=== PATIENT | female | born 1950 | race Caucasian/White ===

== ENCOUNTER 2021-03-05 02:14 | Inpatient (IN) | payer MEDICARE, OTHER ==
[~2021-03-05] VITALS: Ht 165.1 cm; Wt 81.0 kg
[2021-03-05] MEDS ORDERED: NS IV 1000 ML 1,000 ML IV SCH ×2 (02:45→03:15)
[2021-03-05] MEDS ORDERED: ONDANSETRON 4 MG/2 ML (SDV) Z0FRAN IVP ONE (02:45)
[2021-03-05 02:53] LABS: BASOPHILS % (AUTO) 0 % (0-10); BILIRUBIN,URINE NEGATIVE (NEGATIVE); CLARITY,URINE CLEAR; COLOR,URINE YELLOW; EOSINOPHILS # (AUTO) 0.2 10^3/uL (0.0-0.3); EOSINOPHILS % (AUTO) 2 % (0-10); GLUCOSE, URINE (UA) NEGATIVE (NEGATIVE); HEMATOCRIT 35 % (35-52); HEMOGLOBIN 11.3 g/dL (11.5-16.0); KETONES,URINE TRACE (NEGATIVE); LEUKOCYTE ESTERASE ,URINE NEGATIVE (NEGATIVE); LYMPHOCYTES # (AUTO) 2.8 10^3/uL (1.0-4.0); LYMPHOCYTES % (AUTO) 30 % (12-44); MEAN CORPUSCULAR HEMOGLOBIN 28 pg (25-34); MEAN CORPUSCULAR HGB CONC 33 g/dL (32-36); MEAN CORPUSCULAR VOLUME 85 fL (80-99); MEAN PLATELET VOLUME 9.6 fL (9.0-12.2); MONOCYTES # (AUTO) 0.7 10^3/uL (0.0-1.0); MONOCYTES % (AUTO) 7 % (0-12); NEUTROPHILS # (AUTO) 5.6 10^3/uL (1.8-7.8); NEUTROPHILS % (AUTO) 60 % (42-75); NITRITE,URINE NEGATIVE (NEGATIVE); PLATELET COUNT 291 10^3/uL (130-400); PROTEIN,URINE NEGATIVE (NEGATIVE); WHITE BLOOD COUNT 9.4 10^3/uL (4.3-11.0)
--- NOTE | 2021-03-05 02:55 | ED General ---
General Stated Complaint: N,V,DIZZY Source of Information: Patient (SOMEWHAT DIFFICULT HISTORIAN) History of Present Illness Date Seen by Provider: Mar 05, 2021 Time Seen by Provider: 02:15 Initial Comments PT ARRIVES VIA EMS FROM HOME--LIVES ALONE, GRANDSON IS HERE IN ER WITH HER STATES SHE HAS BEEN SICK SINCE LAST Monday02/25/21 C/O NAUSEA/VOMITING/DIARRHEA AND DIZZINESS HAS VOMITED X 2 TODAY, DIARRHEA X 1 TODAY. HAS NOT EATEN MUCH IN THE LAST WEEK, BUT IS DRINKING LOTS OF WATER NO ABDOMINAL PAIN NO URINARY SYMPTOMS, BUT IS UNSURE IF SHE IS VOIDING A NORMAL AMOUNT--PT IS WEARING DEPENDS/BRIEFS NO FEVER HAD BRIEF HEADACHE YESTERDAY, BUT WENT AWAY WITHOUT TREATMENT NO BODY ACHES NO COUGH/URI SYMPTOMS NO SHORTNESS OF BREATH NO CHEST PAIN STATES SHE DOESN'T HURT ANYWHERE SYMPTOMS NO DIFFERENT TONIGHT HAS NOT SOUGHT CARE UNTIL TONIGHT HAS NOT TAKEN ANYTHING FOR SYMPTOMS PT HAS RECEIVED BOTH COVID-19 VACCINES--LAST ONE IN OCTOBER 2020 PT IS INSULIN DEPENDENT DIABETIC. LAST CHECKED HER BLOOD SUGAR YESTERDAY MORNING AROUND 1030 AM PCP MITCH LUIS Allergies and Home Medications Allergies Coded Allergies: aspirin (Verified Allergy, Mild, HIVES, 03/05/21) Patient Home Medication List Home Medication List Reviewed: Yes Review of Systems Review of Systems Constitutional: see HPI; No chills, No diaphoresis; dizziness; No fever EENTM: no symptoms reported Respiratory: no symptoms reported; No cough, No short of breath Cardiovascular: no symptoms reported; No chest pain Gastrointestinal: see HPI; No abdominal pain; diarrhea, nausea, vomiting Genitourinary: see HPI Musculoskeletal: no symptoms reported Skin: no symptoms reported Psychiatric/Neurological: Headache Hematologic/Lymphatic: No Symptoms Reported Immunological/Allergic: no symptoms reported Past Jpqlynu-Nqcpcu-Mbflcg Hx Patient Social History Tobacco Use?: Yes Smoking Status: Former Smoker (QUIT 2011) Substance use?: No Alcohol Use?: No Past Medical History Surgeries: Yes Tubal Ligation Respiratory: No Cardiac: Yes High Cholesterol, Hypertension Neurological: No Genitourinary: No Gastrointestinal: No Musculoskeletal: No Endocrine: Yes Diabetes, Insulin dep, Hypothyroidsim HEENT: Yes Cataract Loss of Vision: Bilateral Hearing Impairment: Hard of Hearing Psychosocial: Yes Anxiety, Depression Integumentary: No Blood Disorders: No Physical Exam Vital Signs Vital Signs - First Documented 03/05/21 02:14 Temp 36.3 Pulse 72 Resp 16 B/P (MAP) 152/55 (87) Pulse Ox 98 O2 Delivery Room Air Capillary Refill : Height, Weight, BMI Height: '" Weight: lbs. oz. kg; BMI Method: General Appearance: No Apparent Distress, WD/WN, Other (UNKEMPT) HEENT: PERRL/EOMI, Other (CORNEAS OPACIFIED BILATERALLY. 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 II-XII Norm as Tested Skin: Normal Color, Warm/Dry Progress/Results/Core Measures Suspected Sepsis SIRS Temperature: Pulse: Respiratory Rate: Laboratory Tests 03/05/21 02:34: White Blood Count 9.4 Blood Pressure / Mean: Laboratory Tests 03/05/21 02:34: Creatinine 0.91, Platelet Count 291, Total Bilirubin 0.3 Results/Orders Lab Results Laboratory Tests Test 03/05/21 02:21 03/05/21 02:34 03/05/21 02:50 Range/Units SARS-CoV-2 RNA (RT-PCR) Not Detected Not Detecte White Blood Count 9.4 4.3-11.0 10^3/uL Red Blood Count 4.04 3.80-5.11 10^6/uL Hemoglobin 11.3 L 11.5-16.0 g/dL Hematocrit 35 35-52 % Mean Corpuscular Volume 85 80-99 fL Mean Corpuscular Hemoglobin 28 25-34 pg Mean Corpuscular Hemoglobin Concent 33 32-36 g/dL Red Cell Distribution Width 12.6 10.0-14.5 % Platelet Count 291 130-400 10^3/uL Mean Platelet Volume 9.6 9.0-12.2 fL Immature Granulocyte % (Auto) 1 % Neutrophils (%) (Auto) 60 42-75 % Lymphocytes (%) (Auto) 30 12-44 % Monocytes (%) (Auto) 7 0-12 % Eosinophils (%) (Auto) 2 0-10 % Basophils (%) (Auto) 0 0-10 % Neutrophils # (Auto) 5.6 1.8-7.8 10^3/uL Lymphocytes # (Auto) 2.8 1.0-4.0 10^3/uL Monocytes # (Auto) 0.7 0.0-1.0 10^3/uL Eosinophils # (Auto) 0.2 0.0-0.3 10^3/uL Basophils # (Auto) 0.0 0.0-0.1 10^3/uL Immature Granulocyte # (Auto) 0.1 0.0-0.1 10^3/uL Urine Color YELLOW Urine Clarity CLEAR Urine pH 5.0 5-9 Urine Specific [place] 1.025 H 1.016-1.022 Urine Protein NEGATIVE NEGATIVE Urine Glucose (UA) NEGATIVE NEGATIVE Urine Ketones TRACE H NEGATIVE Urine Nitrite NEGATIVE NEGATIVE Urine Bilirubin NEGATIVE NEGATIVE Urine Urobilinogen 0.2 < = 1.0 MG/DL Urine Leukocyte Esterase NEGATIVE NEGATIVE Urine RBC (Auto) TRACE-I NEGATIVE Urine RBC RARE /HPF Urine WBC NONE /HPF Urine Squamous Epithelial Cells 2-5 /HPF Urine Crystals NONE /LPF Urine Bacteria NEGATIVE /HPF Urine Casts PRESENT /LPF Urine Hyaline Casts 2-5 H /LPF Urine Mucus LARGE H /LPF Urine Culture Indicated NO Sodium Level 126 L 135-145 MMOL/L Potassium Level 4.1 3.6-5.0 MMOL/L Chloride Level 92 L 98-107 MMOL/L Carbon Dioxide Level 23 21-32 MMOL/L Anion Gap 11 5-14 MMOL/L Blood Urea Nitrogen 19 H 7-18 MG/DL Creatinine 0.91 0.60-1.30 MG/DL Estimat Glomerular Filtration Rate 61 BUN/Creatinine Ratio 21 Glucose Level 87 70-105 MG/DL Calcium Level 9.3 8.5-10.1 MG/DL Corrected Calcium 9.2 8.5-10.1 MG/DL Magnesium Level 1.4 L 1.6-2.4 MG/DL Total Bilirubin 0.3 0.1-1.0 MG/DL Aspartate Amino Transf (AST/SGOT) 19 5-34 U/L Alanine Aminotransferase (ALT/SGPT) 25 0-55 U/L Alkaline Phosphatase 97 40-136 U/L Troponin I < 0.028 <0.028 NG/ML Total Protein 6.9 6.4-8.2 GM/DL Albumin 4.1 3.2-4.5 GM/DL Amylase Level 30 25-125 U/L Lipase 17 8-78 U/L Glucometer 90 70-110 MG/DL My Orders Orders - NOHEMI GARCIA DO Ed Iv/Invasive Line Start (03/05/21 02:16) Ekg Tracing (03/05/21 02:16) Monitor-Rhythm Ecg Trace Only (03/05/21 02:16) Ct Head Wo-R/O Stroke (03/05/21 02:16) Chest 1 View, Ap/Pa Only (03/05/21 02:16) Amylase (03/05/21 02:16) Cbc With Automated Diff (03/05/21 02:16) Comprehensive Metabolic Panel (03/05/21 02:16) Lipase (03/05/21 02:16) Magnesium (03/05/21 02:16) Ua Culture If Indicated (03/05/21 02:16) Troponin I (03/05/21 02:16) Covid 19 Inhouse Test (03/05/21 02:16) Isolation Central Supply Req (03/05/21 02:16) Straight Cath For Spec.-Adult (03/05/21 02:40) Ondansetron Injection (Zofran Injectio (03/05/21 02:45) Ed Iv/Invasive Line Start (03/05/21 02:40) Ed Iv/Invasive Line Start (03/05/21 02:40) Ns Iv 1000 Ml (Sodium Chloride 0.9%) (03/05/21 02:45) Accucheck Stat ONCE (03/05/21 02:40) Magnesium 1 Gm/100 Ml Ivpb (Magnesium Nails (03/05/21 03:15) Ed Iv/Invasive Line Start (03/05/21 03:13) Ns Iv 1000 Ml (Sodium Chloride 0.9%) (03/05/21 03:15) Medications Given in ED Current Medications Medications Dose Ordered Sig/Chase Route Start Time Stop Time Status Last Admin Dose Admin Magnesium Sulfate/ Dextrose 100 ml @ 100 mls/hr ONCE ONCE IV 03/05/21 03:15 03/05/21 04:14 DC 03/05/21 04:03 100 MLS/HR Ondansetron HCl 4 mg ONCE ONCE IVP 03/05/21 02:45 03/05/21 02:47 DC 03/05/21 02:50 4 MG Vital Signs/I&O 03/05/21 02:14 Temp 36.3 Pulse 72 Resp 16 B/P (MAP) 152/55 (87) Pulse Ox 98 O2 Delivery Room Air Capillary Refill : Progress Note : Progress Note PLACED IN ISOLATION ROOM PPE WORN AT ALL TIMES COVID-19 TESTING PERFORMED, REMOVED FROM PUI STATUS ON NEGATIVE COVID-19 TEST, AND PT IS FULLY VACCINATED. ACCUCHECK 90 ON ARRIVAL GIVEN IV FLUIDS AND ZOFRAN AND MAGNESIUM NO VOMITING OR DIARRHEA DURING ER STAY VITALS STABLE NO DETERIORATION IN PT'S CONDITION DURING ER STAY ECG Initial ECG Impression Date: Mar 05, 2021 Initial ECG Impression Time: 02:27 Initial ECG Rate: 70 Initial ECG Rhythm: Normal Sinus Diagnostic Imaging Comments CXR--NO ACUTE PROCESS, PENDING RADIOLOGIST REVIEW CT HEAD--NO ACUTE PROCESS, PER [facility] RADIOLOGIST VIA PHONE AT [id number] AND LATER VIA FAX Reviewed: Reviewed by Me Departure Communication (Admissions) [id number]--SPOKE WITH DR. TRIPATHI, HOSPITALIST, ACCEPTS PT FOR ADMIT Impression Primary Impression: Nausea, vomiting and diarrhea Additional Impressions: Dizziness Hyponatremia Hypomagnesemia IDDM (insulin dependent diabetes mellitus) HTN (hypertension) Blindness Disposition: 09 ADMITTED INPATIENT Condition: Stable Admissions Decision to Admit Reason: Admit from ER (General) Decision to Admit/Date: Mar 05, 2021 Time/Decision to Admit Time: 03:55 NOHEMI GARCIA DO Mar 05, 2021 02:55
[2021-03-05 03:01] LABS: ALBUMIN 4.1 GM/DL (3.2-4.5); CHLORIDE 92 MMOL/L (98-107); POTASSIUM 4.1 MMOL/L (3.6-5.0); SODIUM 126 MMOL/L (135-145)
[2021-03-05 03:02] LABS: AMYLASE 30 U/L (25-125); CALCIUM 9.3 MG/DL (8.5-10.1)
[2021-03-05 03:03] LABS: GLUCOSE 87 MG/DL (70-105); TOTAL PROTEIN 6.9 GM/DL (6.4-8.2)
[2021-03-05 03:04] LABS: CARBON DIOXIDE 23 MMOL/L (21-32)
[2021-03-05 03:05] LABS: BILIRUBIN,TOTAL 0.3 MG/DL (0.1-1.0)
[2021-03-05 03:07] LABS: ALKALINE PHOSPHATASE 97 U/L (40-136); CREATININE SERUM 0.91 MG/DL (0.60-1.30); GFR ESTIMATED 61
[2021-03-05 03:08] LABS: BUN/CREATININE RATIO 21
[2021-03-05 03:10] LABS: ALANINE AMINOTRANSFERASE 25 U/L (0-55); MAGNESIUM 1.4 MG/DL (1.6-2.4)
[2021-03-05 03:11] LABS: LIPASE 17 U/L (8-78)
[2021-03-05 03:14] LABS: BACTERIA,URINE NEGATIVE /HPF; RBC,URINE RARE /HPF
[2021-03-05] MEDS ORDERED: MAGNESIUM 1 GM/100 ML IVPB 100 ML IV ONE (03:15)
[2021-03-05 05:10] VITALS: BP 151/66
[2021-03-05] MEDS: inSUlin ASPART (NovoLOG) 1 UNIT/0.01 ML (CHARGE PER UNIT) SC SCH ×4 (05:28→20:38)
[2021-03-05] MEDS ORDERED: ONDANSETRON 4 MG/2 ML (SDV) Z0FRAN IV PRN (05:30)
[2021-03-05] MEDS ORDERED: ACETAMINOPHEN 500 MG TAB (TYLENOL) PO PRN (05:30)
[2021-03-05] MEDS: NS IV 1000 ML 1,000 ML IV SCH ×3 (05:56→17:48)
--- NOTE | 2021-03-05 06:55 | Diagnostic Imaging Report ---
Indication: Dizziness, nausea, vomiting, chest pain. Comparison: None Findings: Single view of the chest demonstrates clear lungs bilaterally. The heart is normal. There is no pneumothorax. Osseous structures normal. Impression: Negative chest. Dictated by: Dictated on workstation # [id number]
--- NOTE | 2021-03-05 07:04 | Diagnostic Imaging Report ---
PROCEDURE: CT head wo r/o stroke. TECHNIQUE: Multiple contiguous axial images were obtained through the brain without the use of intravenous contrast. Auto Exposure Controls were utilized during the CT exam to meet ALARA standards for radiation dose reduction. INDICATION: Dizziness, headache. COMPARISON: None FINDINGS: Age-related cerebral volume loss and chronic microvascular changes are present. There is no focus of acute ischemia or hemorrhage. No dense vessel sign seen. There is no mass. Bony calvarium is normal. Paranasal sinuses and right mastoid is clear. There is nonspecific effusion of the left mastoid air cell. IMPRESSION: No acute intracranial abnormalities. Agree with preliminary report. Dictated by: Dictated on workstation # [id number]
[2021-03-05 08:00] VITALS: BP 117/58
[2021-03-05] MEDS: MAGNESIUM 1 GM/100 ML IVPB 100 ML IV SCH ×3 (09:29→12:07)
[2021-03-05 12:00] VITALS: BP 158/71
--- NOTE | 2021-03-05 12:25 | History & Physical-Hospitalist ---
History of Present Illness HPI/Chief Complaint Cary Rawls is a 70 year old female with PMH blindness, T2DM, HTN, HLD, hypothyroidism, GERD, who presented with dizziness. She reports that she had an episode of nausea and vomiting a week ago and quickly resolved. She then developed more nausea and vomiting over the past couple days. She has also had loose stools. She reports feeling dizzy and being unable to move from her chair to her wheelchair, so she called EMS. She denies abdominal pain. She denies fevers and chills. She denies chest pain. She denies shortness of breath and cough. She says her diabetes is well controlled. Source: patient Exam Limitations: no limitations Date Seen 03/05/21 Time Seen by a Provider: 10:00 Attending Physician Shahnaz Tao DO PCP No,Local Physician Referring Physician Date of Admission Mar 05, 2021 at 03:55 Home Medications & Allergies Home Medications Reviewed patient Home Medication Reconciliation performed by pharmacy medication reconciliations microwave technician and/or nursing. Patients Allergies have been reviewed. Allergies Allergies Coded Allergies aspirin (Verified Allergy, Mild, HIVES, 03/05/21) Past Iovquim-Jcukxx-Iwjvjk Hx Patient Social History Tobacco Use?: No Smoking Status: Former Smoker (QUIT 2011) Substance use?: No Alcohol Use?: No Pt feels they are or have been: No Immunizations Up To Date First/Initial COVID19 Vaccinat: 11/19/2020 Second COVID19 Vaccination Jama: 11/19/2020 Current Status status: No Advance Directives: Yes Advance Directive Location: Home Communicates: Verbally Primary Language: Spanish Preferred Spoken Language: Spanish Is interpretation needed?: No Sensory deficits: Vision impairment Implanted or Applied Medical D: None Past Medical History Surgeries: Tubal Ligation High Cholesterol, Hypertension Diabetes, Insulin dep, Hypothyroidsim Cataract Loss of Vision: Bilateral Hearing Impairment: Hard of Hearing Anxiety, Depression Blood Disorders: No Family Medical History No Pertinent Family Hx Review of Systems Constitutional: dizziness EENTM: no symptoms reported Respiratory: no symptoms reported Cardiovascular: no symptoms reported Gastrointestinal: diarrhea, nausea, vomiting Genitourinary: no symptoms reported Musculoskeletal: no symptoms reported Skin: no symptoms reported Psychiatric/Neurological: No Symptoms Reported Physical Exam Physical Exam Vital Signs Vital Signs - First Documented 03/05/21 02:14 Temp 36.3 Pulse 72 Resp 16 B/P (MAP) 152/55 (87) Pulse Ox 98 O2 Delivery Room Air Capillary Refill : Less Than 3 Seconds Height, Weight, BMI Height: '" Weight: lbs. oz. kg; 29.71 BMI Method: General Appearance: No Apparent Distress, WD/WN HEENT: PERRL/EOMI, Pharynx Normal Neck: Normal Inspection, Supple Respiratory: Lungs Clear, Normal Breath Sounds, No Respiratory Distress Cardiovascular: Regular Rate, Rhythm, No Edema, No Murmur Gastrointestinal: Normal Bowel Sounds, Non Tender, Soft Extremity: Normal Inspection, Non Tender, No Pedal Edema Neurologic/Psychiatric: Alert, Oriented x3, No Motor/Sensory Deficits, Normal Mood/Affect Skin: Normal Color, Warm/Dry Results Results/Procedures Labs Laboratory Tests 03/05/21 02:34 Patient resulted labs reviewed. Imaging: Reviewed Imaging Report Assessment/Plan Admission Diagnosis Acute gastroenteritis Admission Status: Inpatient Order (span 2 midnights) Reason for Inpatient Admission: IV fluids Assessment and Plan Acute gastroenteritis Hyponatremia Dehydration IV fluids Zofran Clear liquid diet, advance as tolerated HTN Hypothyroidism GERD Continue home meds T2DM Hold Metformin and Glipizide Sliding scale insulin DVT prophylaxis: Lovenox Diagnosis/Problems Diagnosis/Problems (1) Acute gastroenteritis Status: Acute (2) Dehydration Status: Acute (3) Hyponatremia Status: Acute (4) Hypomagnesemia Status: Acute (5) HTN (hypertension) Status: Acute (6) IDDM (insulin dependent diabetes mellitus) Status: Acute ZAIDA GARCIA MD Mar 05, 2021 12:25
[2021-03-05] MEDS ORDERED: lisINopril 40 MG (PRINIVIL) TABLET PO ONE (12:30)
[2021-03-05] MEDS ORDERED: ENOXAPARIN 40 MG/0.4 ML (LOVENOX) SYR SC SCH (13:00)
[2021-03-05] MEDS ORDERED: CHOL100045 PO (13:07)
[2021-03-05] MEDS ORDERED: LEVO75TA6 PO (13:07)
[2021-03-05] MEDS ORDERED: PRAV40TA2 PO (13:07)
[2021-03-05] MEDS ORDERED: BUPR-168 PO (13:07)
[2021-03-05] MEDS ORDERED: ACET-2267 PO (13:07)
[2021-03-05] MEDS ORDERED: MELA5TAB14 PO (13:07)
[2021-03-05] MEDS ORDERED: INSU100I34 SC (13:07)
[2021-03-05] MEDS ORDERED: SERT-412 PO (13:07)
[2021-03-05] MEDS ORDERED: OMEP20CA18 PO (13:07)
[2021-03-05] MEDS ORDERED: ASCO500T17 PO (13:07)
[2021-03-05] MEDS ORDERED: METF-397 PO (13:07)
[2021-03-05] MEDS ORDERED: LORA10TA7 PO (13:07)
[2021-03-05] MEDS ORDERED: GLIP5TAB13 PO (13:07)
[2021-03-05] MEDS ORDERED: DIPH25CA79 PO (13:07)
[2021-03-05] MEDS ORDERED: LISI1TAB46 PO (13:07)
[2021-03-05] MEDS ORDERED: CYAN-41 PO (13:07)
[2021-03-05 15:27] VITALS: BP 108/52
[2021-03-05 19:32] VITALS: BP 138/60
[2021-03-05] MEDS: buPROPion 75 MG (WELLBUTRIN) TAB PO SCH (20:35)
[2021-03-05 23:30] VITALS: BP 131/108
[2021-03-06 03:36] VITALS: BP 110/63
[2021-03-06 05:55] LABS: BASOPHILS % (AUTO) 1 % (0-10); EOSINOPHILS # (AUTO) 0.1 10^3/uL (0.0-0.3); EOSINOPHILS % (AUTO) 2 % (0-10); HEMATOCRIT 31 % (35-52); LYMPHOCYTES # (AUTO) 2.7 10^3/uL (1.0-4.0); LYMPHOCYTES % (AUTO) 36 % (12-44); MEAN CORPUSCULAR HEMOGLOBIN 28 pg (25-34); MEAN CORPUSCULAR HGB CONC 33 g/dL (32-36); MEAN CORPUSCULAR VOLUME 86 fL (80-99); MEAN PLATELET VOLUME 9.9 fL (9.0-12.2); MONOCYTES # (AUTO) 0.6 10^3/uL (0.0-1.0); MONOCYTES % (AUTO) 8 % (0-12); NEUTROPHILS # (AUTO) 3.9 10^3/uL (1.8-7.8); NEUTROPHILS % (AUTO) 53 % (42-75); PLATELET COUNT 273 10^3/uL (130-400); WHITE BLOOD COUNT 7.3 10^3/uL (4.3-11.0)
[2021-03-06 06:14] LABS: POTASSIUM 3.8 MMOL/L (3.6-5.0)
[2021-03-06 06:15] LABS: CALCIUM 8.8 MG/DL (8.5-10.1)
[2021-03-06 06:19] LABS: CREATININE SERUM 0.72 MG/DL (0.60-1.30)
[2021-03-06 06:21] LABS: MAGNESIUM 1.8 MG/DL (1.6-2.4)
[2021-03-06] MEDS ORDERED: LEVOTHYROXINE 75 MCG (LEVOTHROID) TABLET PO SCH (06:30)
[2021-03-06] MEDS: inSUlin ASPART (NovoLOG) 1 UNIT/0.01 ML (CHARGE PER UNIT) SC SCH ×2 (06:38→11:00)
[2021-03-06 07:46] VITALS: BP 126/74
[2021-03-06] MEDS: NS IV 1000 ML 1,000 ML IV SCH (08:51)
[2021-03-06] MEDS: buPROPion 75 MG (WELLBUTRIN) TAB PO SCH (08:52)
[2021-03-06] MEDS ORDERED: PANTOPRAZOLE 20 MG TABLET (PROTONIX) PO SCH (09:00)
[2021-03-06] MEDS ORDERED: lisINopril 40 MG (PRINIVIL) TABLET PO SCH (09:00)
[2021-03-06 11:17] VITALS: BP 160/83
[2021-03-06] MEDS ORDERED: SCOP1PAT11 TD (11:47)
--- NOTE | 2021-03-06 12:25 | Discharge Summary ---
Discharge Summary Hospital Course Was the Problem List Reviewed?: Yes Problems/Dx: (1) Acute gastroenteritis Status: Acute (2) Dehydration Status: Acute (3) Hyponatremia Status: Acute (4) Hypomagnesemia Status: Acute (5) HTN (hypertension) Status: Acute (6) IDDM (insulin dependent diabetes mellitus) Status: Acute Hospital Course Date of Admission: Mar 05, 2021 at 03:55 Admission Diagnosis : Acute gastroenteritis Family Physician/Provider: No,Local Physician Date of Discharge: 03/06/21 Discharge Diagnosis: Acute gastroenteritis Hospital Course: Cary Rawls is a 70-year-old female who was admitted with acute gastroenteritis. She was having issues with nausea, vomiting, and diarrhea. She was treated with supportive care and improved. She was given IV fluids and her dehydration resolved. She did not have any further issues with nausea and vomiting. She was discharged home in stable condition. She wants to establish care at the [facility]. Labs and Pending Lab Test: Laboratory Tests 03/05/21 12:09: Glucometer 105 03/05/21 15:38: Glucometer 126H 03/05/21 20:38: Glucometer 152H 03/06/21 04:58: White Blood Count 7.3, Red Blood Count 3.57L, Hemoglobin 10.0L, Hematocrit 31L, Mean Corpuscular Volume 86, Mean Corpuscular Hemoglobin 28, Mean Corpuscular Hemoglobin Concent 33, Red Cell Distribution Width 13.0, Platelet Count 273, Mean Platelet Volume 9.9, Immature Granulocyte % (Auto) 1, Neutrophils (%) (Auto) 53, Lymphocytes (%) (Auto) 36, Monocytes (%) (Auto) 8, Eosinophils (%) (Auto) 2, Basophils (%) (Auto) 1, Neutrophils # (Auto) 3.9, Lymphocytes # (Auto) 2.7, Monocytes # (Auto) 0.6, Eosinophils # (Auto) 0.1, Basophils # (Auto) 0.0, Immature Granulocyte # (Auto) 0.1, Sodium Level 135, Potassium Level 3.8, Chloride Level 102, Carbon Dioxide Level 24, Anion Gap 9, Blood Urea Nitrogen 12, Creatinine 0.72, Estimat Glomerular Filtration Rate 80, BUN/Creatinine Ratio 17, Glucose Level 91, Calcium Level 8.8, Magnesium Level 1.8 03/06/21 05:53: Glucometer 89 03/06/21 11:00: Glucometer 181H Home Meds Active Transderm-Scop (Scopolamine) 1 Each Patch.td72 1 Each TD Q72H PRN 7 Days Reported Brianna Persaud U-100 (Insulin Glargine,Hum.rec.anlog) 100 Unit/1 Ml Insuln.pen 24 Units SC DAILY LAST FILLED 08-23-2020 #5 PENS/63 DAY SUPPLY Benadryl (Diphenhydramine HCl) 25 Mg Capsule 25 Mg PO BID PRN Loratadine 10 Mg Tablet 10 Mg PO DAILY Tylenol Extra Strength (Acetaminophen) 500 Mg Tablet 1,000 Mg PO Q8H PRN Melatonin 5 Mg Tablet 5 Mg PO HS Vitamin D3 (Cholecalciferol (Vitamin D3)) 25 Mcg Tablet 25 Mcg PO DAILY Vitamin B-12 (Cyanocobalamin (Vitamin B-12)) 1,000 Mcg Tablet 1,000 Mcg PO DAILY Vitamin C (Ascorbic Acid) 500 Mg Tablet 500 Mg PO DAILY Pravastatin Sodium 40 Mg Tablet 40 Mg PO HS Omeprazole 20 Mg Capsule.dr 20 Mg PO HS Levothyroxine Sodium 75 Mcg Tablet 75 Mcg PO DAILY Glipizide 5 Mg Tablet 5 Mg PO DAILY Lisinopril-Hctz 20-12.5 mg Tab (Lisinopril/Hydrochlorothiazide) 1 Each Tablet 1 Ea PO DAILY Sertraline HCl 25 Mg Tablet 25 Mg PO DAILY Metformin HCl 500 Mg Tablet 1,000 Mg PO BID TAKES 2 (500MG) TABS Bupropion HCl 75 Mg Tablet 75 Mg PO BID Assessment/Pt Instructions Take medications as prescribed. Follow-up with your primary care physician. Return with worsening symptoms. Discharge Planning: <30 minutes discharge planning Discharge Instructions Discharge Diet: ADA Diet Activity as Tolerated: Yes Discharge Physical Examination Vital Signs Vital Signs Date Time Temp Pulse Resp B/P (MAP) Pulse Ox O2 Delivery O2 Flow Rate FiO2 03/06/21 11:17 35.1 86 16 160/83 (108) 97 Room Air General Appearance: No Apparent Distress, WD/WN Respiratory: Lungs Clear, Normal Breath Sounds, No Respiratory Distress Cardiovascular: Regular Rate, Rhythm, No Edema, No Murmur Gastrointestinal: Normal Bowel Sounds, Non Tender, Soft Extremity: Normal Inspection, Non Tender, No Pedal Edema Skin: Normal Color, Warm/Dry Neurologic/Psychiatric: Alert, Oriented x3, No Motor/Sensory Deficits, Normal Mood/Affect Allergies: Coded Allergies: aspirin (Verified Allergy, Mild, HIVES, 03/05/21) Copy Copies To 1: [facility] [place] Discharge Summary Date of Admission Mar 05, 2021 at 03:55 Date of Discharge Discharge Date: Mar 06, 2021 Discharge Time: 12:23 Admission Diagnosis Acute gastroenteritis Discharge Diagnosis Acute gastroenteritis Hyponatremia Dehydration (1) Acute gastroenteritis Status: Acute (2) Dehydration Status: Acute (3) Hyponatremia Status: Acute (4) Hypomagnesemia Status: Acute (5) HTN (hypertension) Status: Acute (6) IDDM (insulin dependent diabetes mellitus) Status: Acute ZAIDA GARCIA MD Mar 06, 2021 12:10
== END 2021-03-06 14:50 | disposition home or self-care (01) | DRG 392 ==
LOC: EDUNIT# 02:14 → ER 02:17 → 4TH 03:55
PROVIDERS: ADMIT Internal Medicine; ATTEND Internal Medicine
PROC: 5A09357 Assistance with Respiratory Ventilation, Less than 24 Consecutive Hours, Continuous Positive Airway Pressure (ICD-10-PCS; principal; 2021-03-05)
DX: K52.9 Noninfective gastroenteritis and colitis, unspecified (principal); E87.1 Hypo-osmolality and hyponatremia; E86.0 Dehydration; E83.42 Hypomagnesemia; I10 Essential (primary) hypertension; E11.9 Type 2 diabetes mellitus without complications; Z20.822 Contact with and (suspected) exposure to COVID-19; E78.5 Hyperlipidemia, unspecified; E03.9 Hypothyroidism, unspecified; K21.9 Gastro-esophageal reflux disease without esophagitis; Z87.891 Personal history of nicotine dependence; E78.00 Pure hypercholesterolemia, unspecified; Z79.4 Long term (current) use of insulin; Z79.899 Other long term (current) drug therapy; F41.9 Anxiety disorder, unspecified; F32.9 Major depressive disorder, single episode, unspecified; H54.7 Unspecified visual loss
CPT/HCPCS: 36415; 51701; 70450; 71045; 80048; 80053; 81000; 82150; 82947; 83690; 83735; 84484; 85025; 87636; 93005; 93041; G0378

== ENCOUNTER 2021-05-17 23:39 | Observation (INO) | payer MEDICARE ==
[~2021-05-17] VITALS: Ht 165 cm; Wt 78.3 kg
[~2021-05-17 23:39] MED LIST: ACET-2267 PO; ASCO500T17 PO; BUPR-168 PO; CHOL10004 PO; CYAN-41 PO; DIPH25CA79 PO; GLIP5TAB13 PO; INSU100I34 SC; LEVO75TA6 PO; LISI1TAB46 PO; LORA10TA7 PO; MELA5TAB14 PO; METF-397 PO; OMEP20CA18 PO; PRAV40TA2 PO; SCOP1PAT10 TD; SERT-412 PO
[2021-05-17] MEDS ORDERED: LACTATED RINGERS 1,000 ML IV ONE (23:45)
[2021-05-18] VITALS (7 sets, daily range): BP systolic 113–202; BP diastolic 52–90
[2021-05-18 00:02] LABS: BASOPHILS % (AUTO) 1 % (0-10); EOSINOPHILS # (AUTO) 0.3 10^3/uL (0.0-0.3); EOSINOPHILS % (AUTO) 3 % (0-10); HEMATOCRIT 36 % (35-52); HEMOGLOBIN 11.8 g/dL (11.5-16.0); LYMPHOCYTES # (AUTO) 3.3 10^3/uL (1.0-4.0); LYMPHOCYTES % (AUTO) 37 % (12-44); MEAN CORPUSCULAR HEMOGLOBIN 29 pg (25-34); MEAN CORPUSCULAR HGB CONC 33 g/dL (32-36); MEAN CORPUSCULAR VOLUME 88 fL (80-99); MEAN PLATELET VOLUME 10.3 fL (9.0-12.2); MONOCYTES # (AUTO) 0.6 10^3/uL (0.0-1.0); MONOCYTES % (AUTO) 7 % (0-12); NEUTROPHILS # (AUTO) 4.6 10^3/uL (1.8-7.8); NEUTROPHILS % (AUTO) 52 % (42-75); PLATELET COUNT 264 10^3/uL (130-400); WHITE BLOOD COUNT 8.9 10^3/uL (4.3-11.0)
[2021-05-18 00:14] LABS: ALBUMIN 4.2 GM/DL (3.2-4.5); CHLORIDE 100 MMOL/L (98-107); POTASSIUM 4.8 MMOL/L (3.6-5.0); SODIUM 136 MMOL/L (135-145)
[2021-05-18 00:15] LABS: AMYLASE 47 U/L (25-125); CALCIUM 9.3 MG/DL (8.5-10.1)
[2021-05-18 00:16] LABS: GLUCOSE 123 MG/DL (70-105); TOTAL PROTEIN 7.4 GM/DL (6.4-8.2)
[2021-05-18 00:17] LABS: CARBON DIOXIDE 21 MMOL/L (21-32)
[2021-05-18 00:18] LABS: BILIRUBIN,TOTAL 0.2 MG/DL (0.1-1.0)
[2021-05-18 00:20] LABS: ALKALINE PHOSPHATASE 100 U/L (40-136); CREATININE SERUM 0.99 MG/DL (0.60-1.30); ERYTHROCYTE SEDIMENTATION RATE 24 MM/HR (0-30); GFR ESTIMATED 56
[2021-05-18 00:21] LABS: BUN/CREATININE RATIO 17; INR 0.9 (0.8-1.4); PROTHROMBIN TIME PATIENT 12.9 SEC (12.2-14.7)
[2021-05-18 00:23] LABS: ALANINE AMINOTRANSFERASE 14 U/L (0-55); MAGNESIUM 1.6 MG/DL (1.6-2.4)
[2021-05-18 00:24] LABS: CREATINE KINASE 76 U/L (29-168); LIPASE 26 U/L (8-78)
[2021-05-18 00:29] LABS: BILIRUBIN,URINE NEGATIVE (NEGATIVE); CLARITY,URINE CLEAR; COLOR,URINE YELLOW; GLUCOSE, URINE (UA) NEGATIVE (NEGATIVE); KETONES,URINE TRACE (NEGATIVE); LEUKOCYTE ESTERASE ,URINE 1+ (NEGATIVE); NITRITE,URINE NEGATIVE (NEGATIVE); PH,URINE 5.5 (5-9); PROTEIN,URINE NEGATIVE (NEGATIVE)
[2021-05-18 00:31] LABS: CREATINE KINASE MB 1.4 NG/ML (<6.6)
[2021-05-18 00:40] LABS: AMPHETAMINE SCREEN, URINE NEGATIVE (NEGATIVE); BARBITURATE SCREEN URINE NEGATIVE (NEGATIVE); BENZODIAZEPINES SCREEN URINE NEGATIVE (NEGATIVE); CANNABINOID SCREEN, URINE NEGATIVE (NEGATIVE); COCAINE SCREEN URINE NEGATIVE (NEGATIVE); METHADONE STAT NEGATIVE (NEGATIVE); METHAMPHETAMINE SCREEN URINE S NEGATIVE (NEGATIVE); OPIATE SCREEN URINE NEGATIVE (NEGATIVE); OXYCODONE STAT NEGATIVE (NEGATIVE); PROPOXYPHENE STAT NEGATIVE (NEGATIVE); TRICYCLIC ANTIDEPRESSANTS SCRE NEGATIVE (NEGATIVE)
[2021-05-18 00:41] LABS: BACTERIA,URINE TRACE /HPF
[2021-05-18] MEDS ORDERED: cefTRIAXone 1 GM PRE-MIX 50 ML IV STA (01:23)
--- NOTE | 2021-05-18 02:24 | ED General ---
General Chief Complaint: General Problems/Pain Stated Complaint: UTI;GENERALIZED WEAKNESS;DEHYDRATION Nursing Triage Note: Pt arrives via EMS from home with c/o generalized weakness et vomiting; pt also reports sliding out of bed today. Pt denies hitting her head or LOC. Source of Information: Patient (LIMITED HISTORIAN), EMS, Old Records, Other (GRANDSON IS LIMITED HISTORIAN ABOUT CURRENT PROBLEM) History of Present Illness Date Seen by Provider: May 17, 2021 Time Seen by Provider: 23:40 Initial Comments PT ARRIVES VIA EMS FROM HOME, GRANDSON ARRIVES LATER BY POV C/O GENERALIZED WEAKNESS PT HAS HAD NAUSEA AND VOMITING--UNKNOWN NUMBER OF TIMES NO DIARRHEA NO ABDOMINAL PAIN PT WAS GETTING UP TO GO TO THE BATHROOM, AND WAS TOO WEAK TO STAND AND SLID DOWN THE SIDE OF THE BED AND WAS IN A SITTING POSITION BY THE BED WHEN EMS ARRIVED AT THE SCENE, AND PT WAS ACTIVELY VOMITING WHEN EMS ARRIVED PT REPORTS THAT SHE TOOK A ZOFRAN AT 2030 TONIGHT--PT DOES NOT COMPLAIN OF NAUSEA AT THIS TIME PT IS NOT SURE WHAT TIME THE ABOVE OCCURRED, BUT HEARD THEM ANNOUNCE THE TIME ON THE RADIO, SHORTLY AFTERWARD AND IT SAID THE TIME WAS 2230. DID NOT HIT HEAD AND DENIES LOSS OF CONSCIOUSNESS STATES SHE FELT LIGHTHEADED WHEN SHE TRIED TO STAND UP NO CHEST PAIN NO SHORTNESS OF BREATH NO HEADACHE NO COUGH NO FEVER NO URINARY SYMPTOMS. IS UNSURE IF SHE IS VOIDING A NORMAL AMOUNT. PT WEARING BRIEFS/DEPENDS. NO PAIN ANYWHERE, AND DENIES INJURING HERSELF FROM SLIDING DOWN THE SIDE OF THE BED NO PARESTHESIAS OR MOTOR DEFICITS PT LIVES ALONE. GRANDSON LIVES NEARBY. GRANDSON SPOKE WITH HER ON THE PHONE THIS MORNING AND PT WAS FINE. DID NOT SEE PT AT ALL TODAY. PT IS HARD OF HEARING AND BLIND PT HAS HAD BOTH COVID-19 VACCINATIONS PCP: [place] Allergies and Home Medications Allergies Coded Allergies: aspirin (Verified Allergy, Mild, HIVES, 03/05/21) Patient Home Medication List Home Medication List Reviewed: Yes Acetaminophen (Tylenol Extra Strength) 500 Mg Tablet, 1,000 MG PO Q8H PRN for PAIN-MILD (1-4), (Reported) Entered as Reported by: MICHAEL CARDONA on 03/05/21 1307 Ascorbic Acid (Vitamin C) 500 Mg Tablet, 500 MG PO DAILY, (Reported) Entered as Reported by: MICHAEL CARDONA on 03/05/211306 Bupropion HCl (Bupropion HCl) 75 Mg Tablet, 75 MG PO BID, (Reported) Entered as Reported by: MICHAEL CARDNOA on 03/05/211306 Cholecalciferol (Vitamin D3) (Vitamin D3) 25 Mcg Tablet, 25 MCG PO DAILY, (Reported) Entered as Reported by: MICHAEL CARDONA on 03/05/211306 Cyanocobalamin (Vitamin B-12) (Vitamin B-12) 1,000 Mcg Tablet, 1,000 MCG PO DAILY, (Reported) Entered as Reported by: MICHAEL CARDONA on 03/05/211306 Diphenhydramine HCl (Benadryl) 25 Mg Capsule, 25 MG PO BID PRN for ALLERGY SYMPTOMS, (Reported) Entered as Reported by: MICHAEL CARDONA on 03/05/211306 Glipizide (Glipizide) 5 Mg Tablet, 5 MG PO DAILY, (Reported) Entered as Reported by: MICHAEL CARDONA on 03/05/211306 Insulin Glargine,Hum.rec.anlog (Basaglar Kwikpen U-100) 100 Unit/1 Ml Insuln.pen, 24 UNITS SC DAILY, (Reported) Entered as Reported by: MICHAEL CARDONA on 03/05/211306 Levothyroxine Sodium (Levothyroxine Sodium) 75 Mcg Tablet, 75 MCG PO DAILY, (Reported) Entered as Reported by: MICHAEL CARDONA on 03/05/211306 Lisinopril/Hydrochlorothiazide (Lisinopril-Hctz 20-12.5 mg Tab) 1 Each Tablet, 1 EA PO DAILY, (Reported) Entered as Reported by: MICHAEL CARDONA on 03/05/211306 Loratadine (Loratadine) 10 Mg Tablet, 10 MG PO DAILY, (Reported) Entered as Reported by: MICHAEL CARDONA on 03/05/211306 Melatonin (Melatonin) 5 Mg Tablet, 5 MG PO HS, (Reported) Entered as Reported by: MICHAEL CARDONA on 03/05/211306 Metformin HCl (Metformin HCl) 500 Mg Tablet, 1,000 MG PO BID, (Reported) Entered as Reported by: MICHAEL CARDONA on 03/05/211306 Omeprazole (Omeprazole) 20 Mg Capsule.dr, 20 MG PO HS, (Reported) Entered as Reported by: MICHAEL CARDONA on 03/05/21 1307 Pravastatin Sodium (Pravastatin Sodium) 40 Mg Tablet, 40 MG PO HS, (Reported) Entered as Reported by: MICHAEL CARDONA on 03/05/21 1307 Scopolamine (Transderm-Scop) 1 Each Patch.td72, 1 EACH TD Q72H PRN for MOTION SICKNESS Prescribed by: ZAIDA GARCIA on 03/06/21 1147 Sertraline HCl (Sertraline HCl) 25 Mg Tablet, 25 MG PO DAILY, (Reported) Entered as Reported by: MICHAEL CARDONA on 03/05/21 1307 Review of Systems Review of Systems Constitutional: see HPI, dizziness, malaise, weakness EENTM: no symptoms reported Respiratory: no symptoms reported; No cough, No short of breath Cardiovascular: no symptoms reported; No chest pain, No palpitations, No syncope Gastrointestinal: see HPI; No abdominal pain, No diarrhea; nausea, vomiting Genitourinary: no symptoms reported Musculoskeletal: no symptoms reported Skin: no symptoms reported Past Gqqyqxj-Jzlgxy-Nwsuxh Hx Patient Social History Tobacco Use?: No Use of E-Cig and/or Vaping dev: No Substance use?: No Alcohol Use?: No Pt feels they are or have been: No Immunizations Up To Date First/Initial COVID19 Vaccinat: 11/19/2020 Second COVID19 Vaccination Jama: 11/19/2020 Third COVID19 Vaccination Date: 11/19/2020 Past Medical History Surgeries: Yes Tubal Ligation Respiratory: No Cardiac: Yes High Cholesterol, Hypertension Neurological: No Genitourinary: No Gastrointestinal: No Musculoskeletal: No Endocrine: Yes Diabetes, Insulin dep, Hypothyroidsim HEENT: Yes Cataract Loss of Vision: Bilateral Hearing Impairment: Hard of Hearing Psychosocial: Yes Anxiety, Depression Integumentary: No Blood Disorders: No Family Medical History No Pertinent Family Hx Physical Exam Vital Signs Vital Signs - First Documented 05/17/21 23:55 Temp 37.1 Pulse 81 Resp 18 B/P (MAP) 158/76 (103) Pulse Ox 99 O2 Delivery Room Air Capillary Refill : Less Than 3 Seconds Height, Weight, BMI Height: '" Weight: lbs. oz. kg; 186.00 BMI Method: General Appearance: No Apparent Distress, WD/WN, Other (MILDLY LETHARGIC) HEENT: Moist Mucous Membranes, Other (CORNEAS OPACIFIED) Neck: Normal Inspection Respiratory: Normal Breath Sounds, No Accessory Muscle Use, No Respiratory Distress Cardiovascular: Regular Rate, Rhythm, No Edema, No Murmur Gastrointestinal: Non Tender, Soft Back: No CVA Tenderness Extremity: Normal Capillary Refill, Non Tender, No Pedal Edema Neurologic/Psychiatric: Alert, Oriented x3, No Motor/Sensory Deficits Skin: Normal Color, Warm/Dry; No Rash Focused Exam Sepsis Stage: Sepsis Possible Source: Genitouriary Lactate Level 05/18/21 00:28: Lactic Acid Level 2.23*H Time of Focused Exam: 01:00 Respiratory: Normal Breath Sounds, No Accessory Muscle Use, No Respiratory Distress Cardiovascular: Regular Rate, Rhythm, No Edema, No Murmur Skin: normal color, warm/dry Lactic Acid Level Laboratory Tests Test 05/18/21 00:28 Lactic Acid Level 2.23 MMOL/L (0.50-2.00) *H Within 3hrs of presentation: Admin fluids, Admin ABX, Blood cultures prior to ABX's, Focus exam, Lactate level Progress/Results/Core Measures Suspected Sepsis SIRS Temperature: Pulse: 81 Respiratory Rate: 18 Laboratory Tests 05/17/21 23:40: White Blood Count 8.9 Blood Pressure 158 /76 Mean: 103 05/18/21 00:28: Lactic Acid Level 2.23*H Laboratory Tests 05/17/21 23:40: Creatinine 0.99, INR Comment 0.9, Platelet Count 264, Total Bilirubin 0.2 Results/Orders Lab Results Laboratory Tests Test 05/17/21 23:35 05/17/21 23:40 05/17/21 23:55 05/18/21 00:19 Range/Units Influenza Type A (RT-PCR) Not Detected Not Detecte Influenza Type B (RT-PCR) Not Detected Not Detecte SARS-CoV-2 RNA (RT-PCR) Not Detected Not Detecte White Blood Count 8.9 4.3-11.0 10^3/uL Red Blood Count 4.11 3.80-5.11 10^6/uL Hemoglobin 11.8 11.5-16.0 g/dL Hematocrit 36 35-52 % Mean Corpuscular Volume 88 80-99 fL Mean Corpuscular Hemoglobin 29 25-34 pg Mean Corpuscular Hemoglobin Concent 33 32-36 g/dL Red Cell Distribution Width 12.7 10.0-14.5 % Platelet Count 264 130-400 10^3/uL Mean Platelet Volume 10.3 9.0-12.2 fL Immature Granulocyte % (Auto) 1 % Neutrophils (%) (Auto) 52 42-75 % Lymphocytes (%) (Auto) 37 12-44 % Monocytes (%) (Auto) 7 0-12 % Eosinophils (%) (Auto) 3 0-10 % Basophils (%) (Auto) 1 0-10 % Neutrophils # (Auto) 4.6 1.8-7.8 10^3/uL Lymphocytes # (Auto) 3.3 1.0-4.0 10^3/uL Monocytes # (Auto) 0.6 0.0-1.0 10^3/uL Eosinophils # (Auto) 0.3 0.0-0.3 10^3/uL Basophils # (Auto) 0.0 0.0-0.1 10^3/uL Immature Granulocyte # (Auto) 0.1 0.0-0.1 10^3/uL Erythrocyte Sedimentation Rate 24 0-30 MM/HR Prothrombin Time 12.9 12.2-14.7 SEC INR Comment 0.9 0.8-1.4 Activated Partial Thromboplast Time 34 24-35 SEC Sodium Level 136 135-145 MMOL/L Potassium Level 4.8 3.6-5.0 MMOL/L Chloride Level 100 98-107 MMOL/L Carbon Dioxide Level 21 21-32 MMOL/L Anion Gap 15 H 5-14 MMOL/L Blood Urea Nitrogen 17 7-18 MG/DL Creatinine 0.99 0.60-1.30 MG/DL Estimat Glomerular Filtration Rate 56 BUN/Creatinine Ratio 17 Glucose Level 123 H 70-105 MG/DL Calcium Level 9.3 8.5-10.1 MG/DL Corrected Calcium 9.1 8.5-10.1 MG/DL Magnesium Level 1.6 1.6-2.4 MG/DL Total Bilirubin 0.2 0.1-1.0 MG/DL Aspartate Amino Transf (AST/SGOT) 21 5-34 U/L Alanine Aminotransferase (ALT/SGPT) 14 0-55 U/L Alkaline Phosphatase 100 40-136 U/L Total Creatine Kinase 76 29-168 U/L Creatine Kinase MB 1.4 <6.6 NG/ML Myoglobin 64.8 10.0-92.0 NG/ML Troponin I < 0.028 <0.028 NG/ML C-Reactive Protein High Sensitivity 0.16 0.00-0.50 MG/DL B-Type Natriuretic Peptide 37.4 <100.0 PG/ML Total Protein 7.4 6.4-8.2 GM/DL Albumin 4.2 3.2-4.5 GM/DL Amylase Level 47 25-125 U/L Lipase 26 8-78 U/L Procalcitonin 0.02 <0.10 NG/ML Serum Alcohol < 10 <10 MG/DL Glucometer 110 70-110 MG/DL Urine Color YELLOW Urine Clarity CLEAR Urine pH 5.5 5-9 Urine Specific [place] >=1.030 1.016-1.022 Urine Protein NEGATIVE NEGATIVE Urine Glucose (UA) NEGATIVE NEGATIVE Urine Ketones TRACE H NEGATIVE Urine Nitrite NEGATIVE NEGATIVE Urine Bilirubin NEGATIVE NEGATIVE Urine Urobilinogen 0.2 < = 1.0 MG/DL Urine Leukocyte Esterase 1+ H NEGATIVE Urine RBC (Auto) NEGATIVE NEGATIVE Urine RBC NONE /HPF Urine WBC 5-10 H /HPF Urine Squamous Epithelial Cells 5-10 /HPF Urine Crystals NONE /LPF Urine Bacteria TRACE /HPF Urine Casts PRESENT /LPF Urine Hyaline Casts 5-10 H /LPF Urine Mucus MODERATE H /LPF Urine Culture Indicated CULTURE PENDING Urine Opiates Screen NEGATIVE NEGATIVE Urine Oxycodone Screen NEGATIVE NEGATIVE Urine Methadone Screen NEGATIVE NEGATIVE Urine Propoxyphene Screen NEGATIVE NEGATIVE Urine Barbiturates Screen NEGATIVE NEGATIVE Ur Tricyclic Antidepressants Screen NEGATIVE NEGATIVE Urine Phencyclidine Screen NEGATIVE NEGATIVE Urine Amphetamines Screen NEGATIVE NEGATIVE Urine Methamphetamines Screen NEGATIVE NEGATIVE Urine Benzodiazepines Screen NEGATIVE NEGATIVE Urine Cocaine Screen NEGATIVE NEGATIVE Urine Cannabinoids Screen NEGATIVE NEGATIVE Test 05/18/21 00:28 Range/Units Lactic Acid Level 2.23 *H 0.50-2.00 MMOL/L Micro Results Microbiology 05/18/21 Blood Culture - Preliminary, Resulted No growth 05/18/21 Blood Culture - Preliminary, Resulted No growth My Orders Orders - NOHEMI GARCIA DO Accucheck Stat ONCE (05/17/21 23:44) Ed Iv/Invasive Line Start (05/17/21 23:44) Ekg Tracing (05/17/21 23:44) Catheter(Urinary) Insert & Ass 15 (05/17/21:44) O2 (05/17/21:44) Monitor-Rhythm Ecg Trace Only (05/17/21:44) Alcohol (05/17/21:) Amylase (05/17/21:44) BNP (05/17/21:44) Cbc With Automated Diff (05/17/21:44) Comprehensive Metabolic Panel (05/17/21:) Creatine Kinase (05/17/21:44) Creatine Kinase Mb (05/17/21:44) Hs C Reactive Protein (05/17/21:44) Drug Screen Stat (Urine) (05/17/21:44) Lactic Acid Analyzer (05/17/21) Lipase (05/17/21:44) Magnesium (05/17/21:44) Procalcitonin (Pct) (05/17/21:44) Protime With Inr (05/17/21:44) Partial Thromboplastin Time (05/17/21:44) Ua Culture If Indicated (05/17/21:44) Blood Culture (05/17/21:44) Influenza A And B By Pcr (05/17/21:44) Erythrocyte Sedimentation Rate (05/17/21:44) Myoglobin Serum (05/17/21:44) Troponin I (05/17/21:44) Ed Iv/Invasive Line Start (05/17/21:44) Lactated Ringers (Lr 1000 Ml Iv Solution (05/17/21 23:45) Covid 19 Inhouse Test (05/17/21:44) Urine Culture (05/17/21:44) Ed Iv/Invasive Line Start (05/17/21:44) Vital Signs Adult Sepsis Patie Q15M (05/17/21 23:44) Remove Rings In Anticipation O (05/17/21:44) Chest 1 View, Ap/Pa Only (05/18/21 00:01) Ct Head Wo-R/O Stroke (05/18/21 00:00) Ceftriaxone 1 Gm Iv (Pre-Mix) (Rocephin (05/18/21 01:23) Medications Given in ED Vital Signs/I&O 05/17/21 05/17/21 05/17/21 23:55 23:55 23:55 Temp 37.1 Pulse 81 Resp 18 B/P (MAP) 158/76 (103) Pulse Ox 99 99 O2 Delivery Room Air Room Air Room Air Capillary Refill : Less Than 3 Seconds Blood Pressure Mean: 103 Point of Care Testing Finger Stick Blood Glucose: 110 Progress Note : Progress Note PLACED IN ISOLATION ROOM PPE WORN COVID-19 TESTING DONE PT LATER REMOVED FROM PUI STATUS, BASED ON NEGATIVE COVID-19 TEST, AND PT IS FULLY VACCINATED SEPSIS PROTOCOL INITIATED GIVEN IV FLUIDS AND BP UP TO 140'S SYSTOLIC GIVEN ROCEPHIN NO DETERIORATION IN PT'S CONDITION DURING ER STAY PT STATES SHE WISHES TO BE DNR ECG Initial ECG Impression Date: May 17, 2021 Initial ECG Impression Time: 23:59 Initial ECG Rate: 79 Initial ECG Rhythm: Normal Sinus Diagnostic Imaging Comments CXR--NO ACUTE PROCESS, PENDING RADIOLOGIST REVIEW CT HEAD--NO ACUTE PROCESS, PER [facility] VIA FAX AT [phone] Reviewed: Reviewed by Me Departure Communication (Admissions) 0133--SPOKE WITH DR. PRITCHARD, HOSPITALIST, ACCEPTS PT FOR ADMIT. Impression Primary Impression: Sepsis Additional Impressions: UTI (urinary tract infection) Generalized weakness Nausea & vomiting Dehydration IDDM (insulin dependent diabetes mellitus) Disposition: ADMITTED INPATIENT Condition: Stable Admissions Decision to Admit Reason: Admit from ER (General) Decision to Admit/Date: May 18, 2021 Time/Decision to Admit Time: 01:35 Departure-Patient Inst. Referrals: NO,LOCAL PHYSICIAN (PCP/Family) Primary Care Physician NOHEMI GARCIA DO May 18, 2021 02:24
[2021-05-18] MEDS ORDERED: D5 1/2 NS W/KCL 20 MEQ/L 1,000 ML IV SCH (03:15)
[2021-05-18] MEDS ORDERED: ONDANSETRON 4 MG/2 ML (SDV) Z0FRAN IV PRN (03:15)
[2021-05-18] MEDS ORDERED: ACETAMINOPHEN 500 MG TAB (TYLENOL) PO PRN (03:15)
--- NOTE | 2021-05-18 05:31 | Diagnostic Imaging Report ---
Indication: Weakness, nausea vomiting Portable chest 1:16 AM Heart size and pulmonary vascularity are normal. Lungs are clear. There are no effusions or pneumothoraces. IMPRESSION: Negative chest Dictated by: Dictated on workstation # [id number]
[2021-05-18 06:07] LABS: BASOPHILS # (AUTO) 0.1 10^3/uL (0.0-0.1); BASOPHILS % (AUTO) 1 % (0-10); EOSINOPHILS # (AUTO) 0.1 10^3/uL (0.0-0.3); EOSINOPHILS % (AUTO) 1 % (0-10); HEMATOCRIT 32 % (35-52); HEMOGLOBIN 10.3 g/dL (11.5-16.0); LYMPHOCYTES # (AUTO) 2.2 10^3/uL (1.0-4.0); LYMPHOCYTES % (AUTO) 21 % (12-44); MEAN CORPUSCULAR HEMOGLOBIN 28 pg (25-34); MEAN CORPUSCULAR HGB CONC 32 g/dL (32-36); MEAN CORPUSCULAR VOLUME 87 fL (80-99); MEAN PLATELET VOLUME 10.6 fL (9.0-12.2); MONOCYTES # (AUTO) 0.6 10^3/uL (0.0-1.0); MONOCYTES % (AUTO) 6 % (0-12); NEUTROPHILS # (AUTO) 7.6 10^3/uL (1.8-7.8); NEUTROPHILS % (AUTO) 72 % (42-75); PLATELET COUNT 224 10^3/uL (130-400); WHITE BLOOD COUNT 10.5 10^3/uL (4.3-11.0)
--- NOTE | 2021-05-18 06:13 | Diagnostic Imaging Report ---
PROCEDURE: CT head wo r/o stroke. TECHNIQUE: Multiple contiguous axial images were obtained through the brain without the use of intravenous contrast. Auto Exposure Controls were utilized during the CT exam to meet ALARA standards for radiation dose reduction. INDICATION: Neuro deficit, stroke COMPARISON: 03/05/2021 FINDINGS: No intracranial hemorrhage. Hypodensity consistent with a chronic lacunar infarction versus dilated perivascular space within the right basal ganglia is again identified. No intracranial mass, mass effect, midline shift, herniation, hydrocephalus, or extra-axial fluid collection. No CT evidence of an acute ischemic infarction. Minimal background chronic small vessel white matter ischemic disease is again noted. The orbits are unremarkable. Mild vascular calcifications. The paranasal sinuses are clear. The calvarium and extracalvarial soft tissues are unremarkable. IMPRESSION: No acute intracranial abnormality with additional findings as described above. Agree with preliminary interpretation. Dictated by: Dictated on workstation # [id number]
[2021-05-18 06:29] LABS: POTASSIUM 4.3 MMOL/L (3.6-5.0)
[2021-05-18 06:30] LABS: CALCIUM 8.6 MG/DL (8.5-10.1)
[2021-05-18 06:35] LABS: CREATININE SERUM 0.83 MG/DL (0.60-1.30)
[2021-05-18] MEDS ORDERED: METOCLOPRAMIDE 5 MG (REGLAN) TAB PO ONE (08:15)
[2021-05-18] MEDS ORDERED: hydrALAZINE (APESOLINE) 20 MG/ML VIAL IV PRN (10:00)
[2021-05-18] MEDS ORDERED: BISMUTH SUBSALICYLATE 262 MG (PEPTO BISMOL) TABLET PO PRN (10:30)
[2021-05-18] MEDS ORDERED: MECLIZINE 25 MG (ANTIVERT) TAB PO PRN (10:30)
--- NOTE | 2021-05-18 10:33 | History & Physical-Hospitalist ---
History of Present Illness HPI/Chief Complaint Cary Rawls is a 70 year old female with PMH blindness, hearing impairment, HTN, T2DM on insulin, HLD, GERD, hypothyroidism, depression, who presented after a fall from bed. She reports that she was feeling dizzy in bed. She felt like the room was spinning. She has had issues with vertigo in the past. She says she slipped out of bed to the floor. She did not hit her head. She was unable to get up from the floor. She had access to her phone and called her grandson. She had an episode of nausea and vomiting. She denies fevers and chills. She denies chest pain and palpitations. She denies shortness of breath a nd cough. She denies abdominal pain. She has chronic diarrhea. She denies dysuria, frequency, and urgency. Source: patient Exam Limitations: no limitations Date Seen 05/18/21 Time Seen by a Provider: 09:20 Attending Physician Juan Antonio Guthrie MD PCP No,Local Physician Referring Physician Date of Admission May 18, 2021 at 01:35 Home Medications & Allergies Home Medications Reviewed patient Home Medication Reconciliation performed by pharmacy medication reconciliations ip/mosaic technician and/or nursing. Patients Allergies have been reviewed. Allergies Allergies Coded Allergies aspirin (Verified Allergy, Mild, HIVES, 03/05/21) Past Fxtsyva-Kncwui-Jrpxub Hx Patient Social History Tobacco Use?: No Smoking Status: Never a Smoker Smokeless Tobacco Frequency: Never a User Use of E-Cig and/or Vaping dev: No Substance use?: No Alcohol Use?: No Pt feels they are or have been: No Immunizations Up To Date Date of Influenza Vaccine: Apr 01, 2021 First/Initial COVID19 Vaccinat: 11/19/2020 Second COVID19 Vaccination Jama: 11/19/2020 Current Status status: No status: No Advance Directives: No Communicates: Verbally Primary Language: Senegalese Preferred Spoken Language: Senegalese Is interpretation needed?: No Sensory deficits: Vision impairment, Hearing impairment Past Medical History Surgeries: Tubal Ligation High Cholesterol, Hypertension Diabetes, Insulin dep, Hypothyroidsim Cataract Loss of Vision: Bilateral Hearing Impairment: Hard of Hearing Anxiety, Depression Blood Disorders: No Family Medical History No Pertinent Family Hx Review of Systems Constitutional: dizziness EENTM: no symptoms reported Respiratory: no symptoms reported Cardiovascular: no symptoms reported Gastrointestinal: diarrhea, nausea, vomiting Genitourinary: no symptoms reported Musculoskeletal: no symptoms reported Skin: no symptoms reported Psychiatric/Neurological: No Symptoms Reported Physical Exam Physical Exam Vital Signs Vital Signs - First Documented 05/17/21 23:55 Temp 37.1 Pulse 81 Resp 18 B/P (MAP) 158/76 (103) Pulse Ox 99 O2 Delivery Room Air Capillary Refill : Less Than 3 Seconds Height, Weight, BMI Height: '" Weight: lbs. oz. kg; 28.76 BMI Method: General Appearance: No Apparent Distress, WD/WN HEENT: PERRL/EOMI, Pharynx Normal Neck: Normal Inspection, Supple Respiratory: Lungs Clear, Normal Breath Sounds, No Respiratory Distress Cardiovascular: Regular Rate, Rhythm, No Edema, Systolic Murmur Gastrointestinal: Normal Bowel Sounds, Non Tender, Soft Extremity: Normal Inspection, Non Tender, No Pedal Edema Neurologic/Psychiatric: Alert, Oriented x3, No Motor/Sensory Deficits, Normal Mood/Affect Skin: Normal Color, Warm/Dry Results Results/Procedures Labs Laboratory Tests 05/17/21 23:40 05/18/21 05:18 Patient resulted labs reviewed. Imaging: Reviewed Imaging Report Assessment/Plan Admission Diagnosis Vertigo Admission Status: Observation Assessment and Plan Vertigo Nausea and vomiting CT head normal Symptoms resolved Antivert as needed Reglan scheduled Chronic diarrhea Pepto as needed Asymptomatic bacteriuria UA with 5-10 WBC, no bacteria or nitrites No urinary symptoms Not septic Stop antibiotics T2DM Continue Levemir, decreased dose Sliding scale insulin Metformin HTN Increase Lisinopril Hydralazine as needed Hypothyroidism Depression HLD Continue home meds Vision impaired Hearing impaired Clinically significant, no acute management needs DVT prophylaxis: Lovenox Diagnosis/Problems Diagnosis/Problems (1) Vertigo Status: Acute (2) Nausea & vomiting Status: Acute (3) IDDM (insulin dependent diabetes mellitus) Status: Acute (4) HTN (hypertension) Status: Acute ZAIDA GARCIA MD May 18, 2021 10:33
[2021-05-18] MEDS ORDERED: lisINopril 40 MG (PRINIVIL) TABLET PO NR (10:45)
[2021-05-18] MEDS ORDERED: SERTRALINE 50 MG (ZOLOFT) TABLET PO NR (11:00)
[2021-05-18] MEDS ORDERED: PANTOPRAZOLE 20 MG TABLET (PROTONIX) PO NR (11:00)
[2021-05-18] MEDS: buPROPion SR 150 MG (WELLBUTRIN SR) TAB PO SCH ×2 (11:14→21:23)
[2021-05-18] MEDS: METOCLOPRAMIDE 5 MG (REGLAN) TAB PO SCH ×3 (11:14→21:23)
[2021-05-18] MEDS: ENOXAPARIN 40 MG/0.4 ML (LOVENOX) SYR SC SCH (11:16)
--- NOTE | 2021-05-18 11:16 | Physical Therapy Evaluation ---
PT Evaluation-General Medical Diagnosis Admission Date May 18, 2021 at 01:35 Medical Diagnosis: UTI/generalized weakness/dehydration/sepsis Onset Date: May 18, 2021 Therapy Diagnosis Therapy Diagnosis: debility/weakness Precautions Precautions/Isolations: Fall Prevention, Standard Precautions Referral Physician: Virgil Reason for Referral: Evaluation/Treatment Medical History Pertinent Medical History: DM, HTN Additional Medical History nonambulatory PLOF/w/c use in home/apartment Current History EMS secondary to vomiting and weakness Reviewed History: Yes Social History Home: Apartment Current Living Status: Alone Entry Into Home: Level Entry Prior Prior Level of Function SCALE: Activities may be completed with or without assistive devices. 4-Vuclxgoggo-ztqmwsz completes the activity by him/herself with no assistance from a helper. 5-Set-up or Clean-up Assistance-helper sets up or cleans up; patient completes activity. [place] assists only prior to or following the activity. 4-Supervision or Touching Assistance-helper provides verbal cues and/or touching/steadying and/or contact guard assistance as patient completes activity. Assistance may be provided throughout the activity or intermittently. 3-Partial/Moderate Assistance-helper does LESS THAN HALF the effort. [place] lifts, holds or supports trunk or limbs, but provides less than half the effort. 2-Substantial/Maximal Assistance-helper does MORE THAN HALF the effort. [place] lifts or holds trunk or limbs and provides more than half the effort. 1-Qgsbqraku-vkwxkx does ALL the effort. Patient does none of the effort to complete the activity. Or, the assistance of 2 or more helpers is required for the patient to complete the activity. If activity was not attempted, code reason: 7-Patient Refused. 9-Not Applicable-not attempted and the patient did not perform the activity before the current illness, exacerbation or injury. 10-Not Attempted due to Environmental Limitations-(lack of equipment, weather restraints, etc.). 88-Not Attempted due to Medical Conditions or Safety Concerns. Bed Mobility: 6 Transfers (B,C,W/C): 6 Gait: 9 Stairs: 9 Wheelchair Mobility: 6 Indoor Mobility (Ambulation): Not [place] Stairs: Not [place] Prior Devices Use: Manual wheelchair PT Evaluation-Current Subjective Patient agrees to PT. Objective Patient Orientation: Normal For Age Attachments: Pascual Catheter, IV ROM/Strength ROM Lower Extremities bilateral LE WFL Strength Lower Extremities 3/5 grossly bilateral LE Integumentary/Posture Bladder Incontinence: Pascual Cath Posture WFL Neuromuscular (Tone, Coordination, Reflexes) grossly intact Sensory Vision: Blind Legally Hearing: Impaired Transfers Roll Left to Right (QC): 6 Sit to Lying (QC): 6 Lying to Sitting/Side of Bed(Q: 6 Sit to Stand (QC): 4 (SBA) Chair/Nvo-nb-Ugltn Xfer(QC): 4 (SBA/SPT (able to take 2 small steps) Gait Does the Patient Walk?: No and Walking Goal NOT indicated Balance Sitting Static: Normal Sitting Dynamic: Normal Standing Static: Fair Standing Dynamic: Fair Assessment/Needs 70 y.o. female, will be seen short term by skilled PT to address functional strength and transfer training to ensure safe return to home at maximum LOF. Rehab Potential: Fair PT Long-Term Goals Industrial Relations Worker Goals PT Industrial Relations Worker Goals Time Frame: May 29, 2021 Roll Left & Right (QC): 6 Sit to Lying (QC): 6 Lying-Sitting on Side/Bed(QC): 6 Sit to Stand (QC): 6 Chair/Wfh-pw-Zobwy Xfer(QC): 6 Does the Patient Walk: No and Walking Goal NOT indicated PT Plan Problem List Problem List: Activity Tolerance, Functional Strength Treatment/Plan Treatment Plan: Continue Plan of Care Treatment Plan: Education, Functional Activity Alexia, Functional Strength, Safety, Therapeutic Exercise, Transfers Treatment Duration: May 29, 2021 Frequency: 6 times per week Estimated Hrs Per Day: .25 hour per day Patient and/or Family Agrees t: Yes Time/GCodes Time In: 1045 Time Out: 1055 Total Billed Treatment Time: 10 Total Billed Treatment 1 visit EVLowC 10 min MATEO MENDEZ PT May 18, 2021 11:16
--- NOTE | 2021-05-18 12:11 | Occupational Therapy Eval ---
OT Evaluation-General/PLF Medical Diagnosis Admission Date May 18, 2021 at 01:35 Medical Diagnosis: UTI/generalized weakness/dehydration/sepsis Onset Date: May 18, 2021 Therapy Diagnosis Therapy Diagnosis: decreased ADL status Precautions Precautions/Isolations: Fall Prevention, Standard Precautions Referral Physician: Virgil Cooper Reason: Evaluation/Treatment Medical History Pertinent Medical History: DM, HTN Additional Medical History blindness, HTN, DM, HLD, GERD, hypothyroidism, depression Current History ED due to fall from bed. Social History Home: Apartment Current Living Status: Alone Entry Into Home: Level Entry ADL-Prior Level of Function SCALE: Activities may be completed with or without assistive devices. 5-Zjyipagggc-jtffvhl completes the activity by him/herself with no assistance from a helper. 5-Set-up or Clean-up Assistance-helper sets up or cleans up; patient completes activity. [place] assists only prior to or following the activity. 4-Supervision or Touching Assistance-helper provides verbal cues and/or touching/steadying and/or contact guard assistance as patient completes activity. Assistance may be provided throughout the activity or intermittently. 3-Partial/Moderate Assistance-helper does LESS THAN HALF the effort. [place] lifts, holds or supports trunk or limbs, but provides less than half the effort. 2-Substantial/Maximal Assistance-helper does MORE THAN HALF the effort. [place] lifts or holds trunk or limbs and provides more than half the effort. 3-Hnhdeczyv-yvqklm does ALL the effort. Patient does none of the effort to complete the activity. Or, the assistance of 2 or more helpers is required for the patient to complete the activity. If activity was not attempted, code reason: 7-Patient Refused. 9-Not Applicable-not attempted and the patient did not perform the activity before the current illness, exacerbation or injury. 10-Not Attempted due to Environmental Limitations-(lack of equipment, weather restraints, etc.). 88-Not Attempted due to Medical Conditions or Safety Concerns. ADL PLOF Comments Pt reports IND at PLOF with ADLs and functional mobility primarily using w/c. Pt "feels" around her house in order to locate items due to blindness. She has a walk in shower with shower chair. Meals on wheels to provide noon lunch and family supplements other meals. Self Care: Independent Functional Cognition: Independent DME/Equipment Comments w/c, OT Current Status Subjective Pt up in recliner, agreeable to OT evaluation/tx Mental Status/Objective Patient Orientation: Person, Place, Situation Current Hand Dominance: Right Upper Extremity ROM WFL Upper Extremity Coordination WFL Upper Extremity Strength grossly 3+/5 ADL-Treatment Eating (QC): 5 (Set up per pt and nurse report. She requires set up assistance with cutting food and with initial instruction for where items are located on plate.) Oral Hygiene (QC): 5 (per clinical judgment) Toileting Hygiene (QC): 1 (catheter.) Other Treatments Pt seated in recliner, agreeable to OT tx. OT educated pt on purpose and benefit OT, pt then provided information about PLOF and home set up. Pt states she does well in her own environment and has no concerns at this time with returning home. Pt declines brushing her teeth as she has already completed with set up. OT and pt discussed that she required set up assistance with meals. Pt able to brush hair with set up assistance. Per PT report, pt independent with rolling, sit to/from supine, and SBA with sit to stand and bed to chair transfer (taking 2 small steps). Post tx, pt in recliner, call light in reach and all needs met. Education OT Patient Education: Correct positioning, Energy conservation, Modified ADL techniques, Progress toward Goal/Update tx plan, Purpose of tx/functional activities, Rehab process Teaching Recipient: Patient Teaching Methods: Discussion Response to Teaching: Verbalize Understanding OT Care Home Goals Health Care Aide Goals Time Frame: May 26, 2021 Eating (QC): 5 Oral Hygiene (QC): 5 Toileting Hygiene (QC): 4 Shower/Bathe Self (QC): 4 Upper Body Dressing (QC): 5 Lower Body Dressing (QC): 4 On/Off Footwear (QC): 5 Additional Goals: 1-Demonstrate ADL Tasks, 2-Verbalize Understanding, 3- ImproveStrength/Alexia 1=Demonstrate adherence to instructed precautions during ADL tasks. 2=Patient will verbalize/demonstrate understanding of assistive devices/modifications for ADL. 3=Patient will improve strength/tolerance for activity to enable patient to perform ADL's. OT Education/Plan Problem List/Assessment Assessment: Decreased Activ Tolerance, Decreased UE Strength, Impaired I ADL's, Impaired Self-Care Skills, Visual-Perceptual Deficit Pt would benefit from short term skilled OT services in order to maximize LOF with ADLs for safe return home. Pt's main barrier is the environment, as she is blind and used to her home set up and her home routine. Discharge Recommendations Plan/Recommendations: Continue POC Treatment Plan/Plan of Care Patient would benefit from OT for education, treatment and training to promote independence in ADL's, mobility, safety and/or upper extremity function for ADL's. Plan of Care: ADL Retraining, Functional Mobility, Group Exercise/Act as Ind, UE Funct Exercise/Act Treatment Duration: May 26, 2021 Frequency: 5 times per week Estimated Hrs Per Day: .25 hour per day Rehab Potential: Fair Time/GCodes Start Time: 11:18 Stop Time: 11:36 Total Time Billed (hr/min): 18 Billed Treatment Time 1MERON ADDISON OT May 18, 2021 12:11
[2021-05-18] MEDS: inSUlin ASPART (NovoLOG) 1 UNIT/0.01 ML (CHARGE PER UNIT) SC SCH ×2 (15:51→21:03)
[2021-05-18] MEDS: metFORMIN 500 MG (GLUCOPHAGE) TAB PO SCH (16:14)
[2021-05-18] MEDS ORDERED: cefTRIAXone 1 GM IV (PRE-MIX) 50 ML IV SCH (21:00)
[2021-05-18] MEDS ORDERED: cefTRIAXone 1,000 MG VIAL IM SCH (22:00)
[2021-05-19 04:00] VITALS: BP 130/60
[2021-05-19] MEDS: inSUlin ASPART (NovoLOG) 1 UNIT/0.01 ML (CHARGE PER UNIT) SC SCH ×2 (06:01→10:07)
[2021-05-19] MEDS: metFORMIN 500 MG (GLUCOPHAGE) TAB PO SCH (06:02)
[2021-05-19] MEDS: METOCLOPRAMIDE 5 MG (REGLAN) TAB PO SCH ×2 (06:09→10:05)
[2021-05-19] MEDS ORDERED: LEVOTHYROXINE 75 MCG (LEVOTHROID) TABLET PO SCH (06:30)
[2021-05-19] MEDS: buPROPion SR 150 MG (WELLBUTRIN SR) TAB PO SCH (08:23)
[2021-05-19 08:38] VITALS: BP 130/61
[2021-05-19] MEDS ORDERED: SERTRALINE 50 MG (ZOLOFT) TABLET PO SCH (09:00)
[2021-05-19] MEDS ORDERED: lisINopril 40 MG (PRINIVIL) TABLET PO SCH (09:00)
[2021-05-19] MEDS ORDERED: PANTOPRAZOLE 20 MG TABLET (PROTONIX) PO SCH (09:00)
[2021-05-19] MEDS: ENOXAPARIN 40 MG/0.4 ML (LOVENOX) SYR SC SCH (10:06)
--- NOTE | 2021-05-19 11:15 | Occupational Ther Daily Note ---
OT Current Status-Daily Note Subjective Pt denies pain, reports possible d/c home later today. Appearance pt sitting in chair, all needs within reach at OT departure. Mental Status/Objective Patient Orientation: Person, Place, Situation Attachments: Pascual Catheter, IV ADL-Treatment Therapy Code Descriptions/Definitions Functional [place] Measure: 0=Not Assessed/NA 4=Minimal Assistance 1=Total Assistance 5=Supervision or Setup 2=Maximal Assistance 6=Modified [place] 3=Moderate Assistance 7=Complete IndependenceSCALE: Activities may be completed with or without assistive devices. 3-Khnbprmuus-yqtgprt completes the activity by him/herself with no assistance from a helper. 5-Set-up or Clean-up Assistance-helper sets up or cleans up; patient completes activity. [place] assists only prior to or following the activity. 4-Supervision or Touching Assistance-helper provides verbal cues and/or touching/steadying and/or contact guard assistance as patient completes activity. Assistance may be provided throughout the activity or intermittently. 3-Partial/Moderate Assistance-helper does LESS THAN HALF the effort. [place] lifts, holds or supports trunk or limbs, but provides less than half the effort. 2-Substantial/Maximal Assistance-helper does MORE THAN HALF the effort. [place] lifts or holds trunk or limbs and provides more than half the effort. 0-Jefvmgegq-udrmjr does ALL the effort. Patient does none of the effort to complete the activity. Or, the assistance of 2 or more helpers is required for the patient to complete the activity. If activity was not attempted, code reason: 7-Patient Refused. 9-Not Applicable-not attempted and the patient did not perform the activity before the current illness, exacerbation or injury. 10-Not Attempted due to Environmental Limitations-(lack of equipment, weather restraints, etc.). 88-Not Attempted due to Medical Conditions or Safety Concerns. Toilet Transfer (QC): 4 Pt reports possibility of going home later today. Discussed getting dressed for upcoming discharge yet pt still with IV and Pascual catheter, thus activities did not occur. Pt able to demonstrate commode transfer with SBA and cues for safety secondary to low vision. She reports usually holding onto the grab bar at home when managing clothing over hips. Voiding did not occur secondary to catheter. Anticipate pt will do better when in familiar environment. Education OT Patient Education: Correct positioning, Energy conservation, Modified ADL techniques, Progress toward Goal/Update tx plan, Purpose of tx/functional activities, Transfer techniques Teaching Recipient: Patient Teaching Methods: Demonstration Response to Teaching: Verbalize Understanding, Return Demonstration OT Mcfp Goals Fundraising Officer Goals Time Frame: May 26, 2021 Eating (QC): 5 Oral Hygiene (QC): 5 Toileting Hygiene (QC): 4 Shower/Bathe Self (QC): 4 Upper Body Dressing (QC): 5 Lower Body Dressing (QC): 4 On/Off Footwear (QC): 5 Additional Goals: 1-Demonstrate ADL Tasks, 2-Verbalize Understanding, 3- ImproveStrength/Alexia 1=Demonstrate adherence to instructed precautions during ADL tasks. 2=Patient will verbalize/demonstrate understanding of assistive devices/modifications for ADL. 3=Patient will improve strength/tolerance for activity to enable patient to perform ADL's. OT Education/Plan Problem List/Assessment Assessment: Impaired Self-Care Skills, Visual-Perceptual Deficit Pt would benefit from short term skilled OT services in order to maximize LOF with ADLs for safe return home. Pt's main barrier is the environment, as she is blind and used to her home set up and her home routine. Discharge Recommendations Plan/Recommendations: Continue POC Treatment Plan/Plan of Care Treatment,Training & Education: Yes Patient would benefit from OT for education, treatment and training to promote independence in ADL's, mobility, safety and/or upper extremity function for ADL's. Plan of Care: ADL Retraining, Functional Mobility, Group Exercise/Act as Ind, UE Funct Exercise/Act Treatment Duration: May 26, 2021 Frequency: 5 times per week Estimated Hrs Per Day: .25 hour per day Rehab Potential: Fair Time/GCodes Start Time: 10:38 Stop Time: 10:52 Total Time Billed (hr/min): 14 Billed Treatment Time 1 visit ADL Lolis Muniz OT May 19, 2021 11:15
[2021-05-19 12:04] VITALS: BP 163/72
[2021-05-19] MEDS ORDERED: MECL-149 PO (12:46)
--- NOTE | 2021-05-19 12:54 | Discharge Summary ---
Discharge Summary Instructions for Patient Via [facility], Assessment/Instructions Take medications as prescribed. Follow up with your PCP. Return with worsening symptoms. Physician to follow Patient: Nicole Discharge Diet for Home: No Restrictions Hospital Course Date of Admission: May 18, 2021 at 01:35 Admission Diagnosis: Vertigo Family Physician/Provider: MadelinLocal Physician Date of Discharge: 05/19/21 Discharge Diagnosis: Vertigo Hospital Course: Cary Rawls is a 70 year old female with PMH HTN, T2DM on insulin, chronic diarrhea, who presented with dizziness. She slipped out of her bed to the floor and EMS had to be called to help her. Her CT showed no intracranial abnormalities. Her trauma exam was negative. She had no further episodes of vertigo. She was started on Reglan for nausea and vomiting with possible gastroparesis. She was given a supply of Meclizine as needed for vertigo. She was set up with home health care. She was discharged home in stable condition. Labs and Pending Lab Test: Laboratory Tests 05/18/21 15:23: Glucometer 210H 05/18/21 20:27: Glucometer 75 05/19/21 05:50: Glucometer 76 05/19/21 09:36: Glucometer 141H 05/19/21 11:10: Glucometer 143H Microbiology 05/18/21 Blood Culture - Preliminary, Resulted No growth 05/18/21 Urine Culture - Final, Complete Mixed Bacterial Annie Home Meds Active Meclizine HCl 25 Mg Tablet 25 Mg PO TID PRN 30 Days Reported Brianna Persaud U-100 (Insulin Glargine,Hum.rec.anlog) 100 Unit/1 Ml Insuln.pen 24 Units SC DAILY LAST FILLED 08-23-2020 #5 PENS/63 DAY SUPPLY Benadryl (Diphenhydramine HCl) 25 Mg Capsule 25 Mg PO BID PRN Loratadine 10 Mg Tablet 10 Mg PO DAILY Tylenol Extra Strength (Acetaminophen) 500 Mg Tablet 1,000 Mg PO Q8H PRN Melatonin 5 Mg Tablet 5 Mg PO HS Vitamin D3 (Cholecalciferol (Vitamin D3)) 25 Mcg Tablet 25 Mcg PO DAILY Vitamin B-12 (Cyanocobalamin (Vitamin B-12)) 1,000 Mcg Tablet 1,000 Mcg PO DAILY Vitamin C (Ascorbic Acid) 500 Mg Tablet 500 Mg PO DAILY Pravastatin Sodium 40 Mg Tablet 40 Mg PO HS Omeprazole 20 Mg Capsule.dr 20 Mg PO HS Levothyroxine Sodium 75 Mcg Tablet 75 Mcg PO DAILY Glipizide 5 Mg Tablet 5 Mg PO DAILY Lisinopril-Hctz 20-12.5 mg Tab (Lisinopril/Hydrochlorothiazide) 1 Each Tablet 1 Ea PO DAILY Sertraline HCl 25 Mg Tablet 25 Mg PO DAILY Metformin HCl 500 Mg Tablet 1,000 Mg PO BID TAKES 2 (500MG) TABS Bupropion HCl 75 Mg Tablet 75 Mg PO BID Patient Allergies: Coded Allergies: aspirin (Verified Allergy, Mild, HIVES, 03/05/21) Home Health Need/Face to Face Date of Face to Face: May 19, 2021 Clinical Findings: Generalized weakness and fatigue, Instability, Muscle weakness I have seen Pt pjjr-gl-ykiz: Yes Discharged To: Home Diagnosis/Conditions: Vision impaired Hearing impaired Hypertenison Diabetes Vertigo Problems/Diagnosis/Condition: (1) Hearing impaired (2) Blindness (3) HTN (hypertension) (4) IDDM (insulin dependent diabetes mellitus) (5) Vertigo Patient is Homebound due to: All fall risk due to instabilty, Muscle weakness Homebound Status Due to the above stated illness, injury or surgical procedure (medical c ondition or diagnosis) and associated clinical findings, the patient is homebound because of his/her inability to leave home except with aid of a supportive device and/or person AND leaving the home requires a considerable and taxing effort or is medically contraindicated. Pt req the following assistanc: Aid of another person Home Health Nursing Orders Home Health Services Order: Nursing Services, Roll On Man-Evaluate & Treat, Physical Therapy-Evaluate & Treat Home Health Infusion Therapy Line Start Date: May 18, 2021 Therapy Orders Therapy Orders: OT (must have SN or PT order), Physical Therapy Therapy Specific Orders: Eval assistive deivces, Teach enviro modifications/safety, Gait training, Increase strength/endurance Certify Stmt I certify that this patient is under my care and that I, a nurse practitioner or a physician; a pathology assistant working with me, had a face to face encounter that - meets the physician face to face encounter requirements with this patient as dated. Discharge Physical Exam General: Alert, Oriented X3, Cooperative, No Acute Distress HEENT: Atraumatic, PERRLA, EOMI Lungs: Clear to Auscultation, Normal Air Movement Heart: Regular Rate, Normal S1, Normal S2, No Murmurs Abdomen: Normal Bowel Sounds, Soft, No Tenderness Extremities: No Edema, No Tenderness/Swelling Skin: No Rashes, No Significant Lesion Neuro: Normal Speech, Normal Tone Psych/Mental Status: Mental Status NL, Mood NL ZAIDA GARCIA MD May 19, 2021 12:53
--- NOTE | 2021-05-19 13:41 | Physical Therapy Daily Note ---
PT Daily Note-Current Subjective Patient in recliner pre tx, agrees to PT but states she doesn't want to stand up, agrees to exercises in the chair. Patient voices no complaints of pain. Appearance Patient in recliner post tx with nurse call, phone, tray, all needs met, legs elevated. Mental Status Patient Orientation: Person, Place, Situation Attachments: Pascual Catheter Transfers SCALE: Activities may be completed with or without assistive devices. 9-Obxtjhnuyn-qbwetpy completes the activity by him/herself with no assistance from a helper. 5-Set-up or Clean-up Assistance-helper sets up or cleans up; patient completes activity. [place] assists only prior to or following the activity. 4-Supervision or Touching Assistance-helper provides verbal cues and/or touching/steadying and/or contact guard assistance as patient completes activity. Assistance may be provided throughout the activity or intermittently. 3-Partial/Moderate Assistance-helper does LESS THAN HALF the effort. [place] l ifts, holds or supports trunk or limbs, but provides less than half the effort. 2-Substantial/Maximal Assistance-helper does MORE THAN HALF the effort. [place] lifts or holds trunk or limbs and provides more than half the effort. 1-Lvlvuwvrk-ctsxtv does ALL the effort. Patient does none of the effort to complete the activity. Or, the assistance of 2 or more helpers is required for t he patient to complete the activity. If activity was not attempted, code reason: 7-Patient Refused. 9-Not Applicable-not attempted and the patient did not perform the activity before the current illness, exacerbation or injury. 10-Not Attempted due to Environmental Limitations-(lack of equipment, weather restraints, etc.). 88-Not Attempted due to Medical Conditions or Safety Concerns. Exercises Seated Therapy Exercises: Ankle pumps, Long arc quads, Hip flexion, Hip abd/add Seated Reps: 20 Treatments LE strengthening Assessment Current Status: Fair Progress patient performed exercises well PT Senior Living Goals Transportation Attendant Goals PT Transportation Attendant Goals Time Frame: May 29, 2021 Roll Left & Right (QC): 6 Sit to Lying (QC): 6 Lying-Sitting on Side/Bed(QC): 6 Sit to Stand (QC): 6 Chair/Tzu-mu-Tmodt Xfer(QC): 6 Does the Patient Walk: No and Walking Goal NOT indicated PT Plan Problem List Problem List: Activity Tolerance, Functional Strength, Safety, Balance, Gait, Transfer, ROM Treatment/Plan Treatment Plan: Continue Plan of Care Treatment Plan: Education, Functional Activity Alexia, Functional Strength, Safety, Therapeutic Exercise, Transfers Treatment Duration: May 29, 2021 Frequency: 6 times per week Estimated Hrs Per Day: .25 hour per day Patient and/or Family Agrees t: Yes Safety Risks/Education Patient Education: Correct Positioning, Safety Issues Teaching Recipient: Patient Teaching Methods: Demonstration, Discussion Response to Teaching: Reinforcement Needed Time/GCodes Time In: 1321 Time Out: 1330 Total Billed Treatment Time: 9 Total Billed Treatment 1 visit EX 9' PRASANNA NOWAK PT May 19, 2021 13:41
[2021-05-19 14:26] VITALS: BP 163/72
== END 2021-05-19 15:10 | disposition home health service (06) ==
LOC: EDUNIT# 23:39 → ER 23:41 → OBSVTOIN 05-18 01:35 → 4TH 05-18 01:35 → INTOOBSV 05-18 01:35
PROVIDERS: ADMIT Internal Medicine; ATTEND Internal Medicine
DX: R42 Dizziness and giddiness (principal); I10 Essential (primary) hypertension; K52.9 Noninfective gastroenteritis and colitis, unspecified; H91.90 Unspecified hearing loss, unspecified ear; H54.7 Unspecified visual loss; K21.9 Gastro-esophageal reflux disease without esophagitis; E78.5 Hyperlipidemia, unspecified; E03.9 Hypothyroidism, unspecified; F32.A Depression, unspecified; E78.00 Pure hypercholesterolemia, unspecified; E11.36 Type 2 diabetes mellitus with diabetic cataract; F41.9 Anxiety disorder, unspecified; N39.0 Urinary tract infection, site not specified; A41.9 Sepsis, unspecified organism; E86.0 Dehydration; Z79.4 Long term (current) use of insulin; Z79.899 Other long term (current) drug therapy; Z79.84 Long term (current) use of oral hypoglycemic drugs; Z79.890 Hormone replacement therapy
CPT/HCPCS: 70450; 71045; 80048; 80053; 80306; 81000; 82150; 82550; 82553; 82947 ×3; 83605; 83690; 83735; 83874; 83880; 84145; 84484; 85025; 85610; 85652; 85730; 86141; 87040; 87088; 87636; 93005; 93041; 97110; 97161; 97166; 97535; 99284; G0378; G0480; 36415; 80320

== ENCOUNTER → 2023-05-12 | Outpatient (CLI) | payer MEDICARE ==
[~2023-05-12] MED LIST changes: -GLIP5TAB13 PO; +GLIP5TAB23 PO; +MECL-291 PO
== END ==
LOC: CARD 11:31
PROVIDERS: ATTEND Nurse Practitioner Family
DX: I51.7 Cardiomegaly (principal); I35.2 Nonrheumatic aortic (valve) stenosis with insufficiency; I34.0 Nonrheumatic mitral (valve) insufficiency; R63.5 Abnormal weight gain
CPT/HCPCS: 93306